=== PATIENT | female | born 1995 | race Caucasian/White ===

== ENCOUNTER → 2024-07-11 08:05 | Outpatient (REF) | payer BC, SELFPAY | LOC: PNTC 08:05 | PROVIDERS: ATTENDING PHYSICIAN Student in an Organized Health Care Education/Training Program | DX: Z36.0 Encounter for antenatal screening for chromosomal anomalies (principal); Z36.82 Encounter for antenatal screening for nuchal translucency | CPT/HCPCS: 76801; 76813 ==

== ENCOUNTER → 2024-08-01 08:02 | Outpatient (REF) | payer BC, SELFPAY | LOC: PNTC 08:02 | PROVIDERS: ATTENDING PHYSICIAN Student in an Organized Health Care Education/Training Program | DX: O35.9XX0 Maternal care for (suspected) fetal abnormality and damage, unspecified, not applicable or unspecified (principal) | CPT/HCPCS: 76805 ==

== ENCOUNTER → 2024-08-29 07:34 | Outpatient (REF) | payer BC, SELFPAY | LOC: PNTC 07:34 | PROVIDERS: ATTENDING PHYSICIAN Student in an Organized Health Care Education/Training Program | DX: Z36.8A Encounter for antenatal screening for other genetic defects (principal); Z87.59 Personal history of other complications of pregnancy, childbirth and the puerperium; Z3A.20 20 weeks gestation of pregnancy | CPT/HCPCS: 76811 ==

== ENCOUNTER → 2024-10-13 14:57 | Outpatient (REF) | payer BC, SELFPAY | LOC: PNTC 14:57 | PROVIDERS: ATTENDING PHYSICIAN Student in an Organized Health Care Education/Training Program | DX: O35.9XX0 Maternal care for (suspected) fetal abnormality and damage, unspecified, not applicable or unspecified (principal) | CPT/HCPCS: 76816 ==

== ENCOUNTER → 2024-11-22 15:52 | Outpatient (REF) | payer BC, SELFPAY | LOC: PNTC 15:52 | PROVIDERS: ATTENDING PHYSICIAN Student in an Organized Health Care Education/Training Program | DX: O35.00X0 Maternal care for (suspected) central nervous system malformation or damage in fetus, unspecified, not applicable or unspecified (principal) | CPT/HCPCS: 76816 ==

== ENCOUNTER → 2024-12-07 09:27 | Outpatient (REF) | payer BC, SELFPAY | LOC: PNTC 09:27 | PROVIDERS: ATTENDING PHYSICIAN Student in an Organized Health Care Education/Training Program | DX: Q87.5 Other congenital malformation syndromes with other skeletal changes (principal); O99.210 Obesity complicating pregnancy, unspecified trimester | CPT/HCPCS: 59025; 76815 ==

== ENCOUNTER → 2024-12-15 07:38 | Outpatient (REF) | payer BC, SELFPAY | LOC: PNTC 07:38 | PROVIDERS: ATTENDING PHYSICIAN Obstetrics & Gynecology | DX: O99.210 Obesity complicating pregnancy, unspecified trimester (principal); Q33.0 Congenital cystic lung | CPT/HCPCS: 59025; 76816 ==

== ENCOUNTER → 2024-12-22 07:33 | Outpatient (REF) | payer BC, SELFPAY | LOC: PNTC 07:33 | PROVIDERS: ATTENDING PHYSICIAN Obstetrics & Gynecology | DX: Q33.9 Congenital malformation of lung, unspecified (principal); O99.210 Obesity complicating pregnancy, unspecified trimester | CPT/HCPCS: 59025; 76815 ==

== ENCOUNTER → 2024-12-29 08:04 | Outpatient (REF) | payer BC, SELFPAY | LOC: PNTC 08:04 | PROVIDERS: ATTENDING PHYSICIAN Obstetrics & Gynecology | DX: O99.210 Obesity complicating pregnancy, unspecified trimester (principal); O35.9XX0 Maternal care for (suspected) fetal abnormality and damage, unspecified, not applicable or unspecified | CPT/HCPCS: 59025; 76815 ==

== ENCOUNTER → 2025-01-05 07:58 | Outpatient (REF) | payer BC, SELFPAY | LOC: PNTC 07:58 | PROVIDERS: ATTENDING PHYSICIAN Obstetrics & Gynecology | DX: O35.0 Maternal care for (suspected) central nervous system malformation in fetus (principal); O99.210 Obesity complicating pregnancy, unspecified trimester | CPT/HCPCS: 59025; 76815 ==

== ENCOUNTER → 2025-01-12 08:44 | Outpatient (REF) | payer BC, SELFPAY | LOC: PNTC 08:44 | PROVIDERS: ATTENDING PHYSICIAN Obstetrics & Gynecology | DX: O09.529 Supervision of elderly multigravida, unspecified trimester (principal); O99.210 Obesity complicating pregnancy, unspecified trimester; O99.891 Other specified diseases and conditions complicating pregnancy | CPT/HCPCS: 59025; 76815 ==

== ENCOUNTER 2025-01-18 07:09 | Inpatient (IN) | payer BC, SELFPAY ==
[2025-01-18 07:22] VITALS: BP 144/85; BMI 34.1
[2025-01-18] MEDS: LR 1000 IV ×2 (08:15→11:40)
[2025-01-18 08:39] LABS: % Basophils 0.2 % (0-2); % Eosinophils 0.1 % (0-6); % Immature Granulocytes 0.3 % (0-0.5); % Lymphocytes 11.8 % (20.5-51.1); % Monocytes 4.8 % (1.7-9.3); % Neutrophils 82.8 % (42.2-75.2); Absolute Lymphocytes 1.5 10^3/uL (1.2-3.4); Absolute Monocytes 0.6 10^3/uL (0.1-0.6); Absolute Neutrophils 10.6 10^3/uL (1.4-6.5); Hematocrit 38.9 % (37.0-47.0); Hemoglobin 13.3 g/dL (12.0-16.0); Mean Corp Hgb Conc. 34.2 g/dL (33.0-37.0); Mean Corpuscular Hgb 29.3 pg (27.0-31.0); Mean Corpuscular Volume 85.7 fL (81.0-99.0); Nucleated Red Blood Cells % 0 %; Platelet Count 234 10^3/uL (130-400); Red Blood Cell Count 4.54 10^6/uL (4.20-5.40); Red Cell Dist. Width 12.8 % (11.5-14.5); White Blood Cell Count 12.8 10^3/uL (4.8-10.8)
[2025-01-18 09:10] LABS: ALT (SGPT) 31 U/L (0-35); AST (SGOT) 16 U/L (14-36); Albumin 3.7 g/dl (3.5-5.0); Alkaline Phosphatase 237 U/L (38-126); Blood Urea Nitrogen 9 mg/dl (7-17); Calcium 9.2 mg/dl (8.4-10.2); Carbon Dioxide 18 mmol/L (22-30); Chloride 109 mmol/L (98-107); Estimated Creatinine Clearance > 125 ml/min; Glucose 93 mg/dl (70-99); Sodium 135 mmol/L (135-145); Total Bilirubin 0.6 mg/dl (0.2-1.3); Total Protein 6.6 g/dl (6.3-8.2); eGFR > 60.00
[2025-01-18] MEDS: TUMS CHEWABLE TABLET 400 MG PO ×2 (10:37→17:37)
[2025-01-18] MEDS: PITOCIN 30 UNITS/NSS 500 ML IV (12:03)
[2025-01-18] MEDS: XYLOCAINE-MPF 1% VIAL 10 ML INFIL (12:04)
[2025-01-18 13:52] LABS: Urine Protein < 5.0 mg/dl
[2025-01-18] MEDS: TRANEXAMIC ACID 100 IV (14:00)
[2025-01-18] MEDS: HEMABATE 250 MCG IM (15:29)
[2025-01-18] MEDS: MOTRIN 600 MG PO (16:34)
[2025-01-19 04:17] LABS: Hematocrit 32.9 % (37.0-47.0); Hemoglobin 11.4 g/dL (12.0-16.0)
[2025-01-19 11:59] LABS: Syphilis/T. pallidum Ab Reflex Negative (Negative)
[2025-01-19] MEDS: MOTRIN 600 MG PO (15:43)
[2025-01-19] MEDS: PRENATAL PLUS 1 TABLET PO (15:43)
[2025-01-20] MEDS: PRENATAL PLUS 1 TABLET PO (08:34)
[2025-01-20] MEDS: MOTRIN 600 MG PO (08:38)
[2025-01-20] MEDS: SENOKOT-S 1 TABLET PO (09:33)
--- NOTE | 2025-01-20 10:42 | CM ---
Met with new parents Estee and Claudy at bedside
Pt acknowledged listed address/phone numbers; living in home are mom, dad and their son Dillan (3yo)
Parents have named their Rudy
Mom reports she plans to breast feed - has breast pump
Parents have supplies for including car seat and crib
Peds - [facility]
OB - [facility] - [facility]
Discussed elevated PPD screen
Pt reports she is not feeling sad, depressed or overwhelmed
Reports she has support from her , family and friends
Offered support/resources
Plan - anticipate home no needs
== END 2025-01-20 12:59 | disposition home or self-care (01) | DRG 807 ==
LOC: LDRP 07:09
PROVIDERS: ADMITTING PHYSICIAN Student in an Organized Health Care Education/Training Program
PROC: 0KQM0ZZ Repair Perineum Muscle, Open Approach (ICD-10-PCS; 2025-01-18)
PROC: 10E0XZZ Delivery of Products of Conception, External Approach (ICD-10-PCS; 2025-01-18)
PROC: 4A1HXCZ Monitoring of Products of Conception, Cardiac Rate, External Approach (ICD-10-PCS; 2025-01-18)
PROC: 10907ZC Drainage of Amniotic Fluid, Therapeutic from Products of Conception, Via Natural or Artificial Opening (ICD-10-PCS; 2025-01-18)
DX: O48.0 Post-term pregnancy (principal); Z37.0 Single live birth; O70.1 Second degree perineal laceration during delivery; Z3A.41 41 weeks gestation of pregnancy; O69.81X0 Labor and delivery complicated by cord around neck, without compression, not applicable or unspecified; Z88.0 Allergy status to penicillin; Z91.040 Latex allergy status; O99.214 Obesity complicating childbirth
CPT/HCPCS: 36415; 80053; 82570; 84156; 85014; 85018; 85025; 86780; 86850; 86900; 86901; 87491; 87591